=== PATIENT | female | born 1985 ===

== ENCOUNTER → 2018-02-22 | Day surgery (SDC) | payer OTHER | END | disposition home or self-care (01) | LOC: ADM 02-16 13:30 → AMB-ENDOS 08:52 | DX: K29.60 Other gastritis without bleeding (principal); L53.8 Other specified erythematous conditions; K44.9 Diaphragmatic hernia without obstruction or gangrene ==

== ENCOUNTER 2018-08-29 05:52 | Day surgery (SDC) | payer OTHER ==
[2018-08-29] MEDS ORDERED: PERCOCET 5-3251 EACH PO (11:29)
[2018-08-29] MEDS ORDERED: POLY119PG PO (11:29)
[2018-08-29] MEDS ORDERED: CARAFATE1 GM/10 ML PO (11:30)
== END 2018-08-29 14:40 | disposition home or self-care (01) ==
LOC: CIR.AMB 05:52
DX: K80.10 Calculus of gallbladder with chronic cholecystitis without obstruction (principal); K42.9 Umbilical hernia without obstruction or gangrene; K43.2 Incisional hernia without obstruction or gangrene; K66.0 Peritoneal adhesions (postprocedural) (postinfection)